=== PATIENT | female | born 1970 | race Asian ===

== ENCOUNTER 2017-04-11 12:42 | Emergency (ER) | payer OTHER ==
[~2017-04-11] VITALS: Ht 170.2 cm; Wt 102.1 kg
[2017-04-11 13:30] LABS: PLATELET COUNT 632 K/uL (152-353)
== END 2017-04-11 14:35 | disposition home or self-care (01) ==
LOC: ED 12:42
DX: M25.532 Pain in left wrist (principal); Z98.890 Other specified postprocedural states
CPT/HCPCS: 36415; 85027; 99283

== ENCOUNTER 2017-04-29 18:35 | Emergency (ER) | payer OTHER ==
[~2017-04-29] VITALS: Ht 170.2 cm; Wt 127.0 kg
== END 2017-04-29 21:15 | disposition home or self-care (01) ==
LOC: ED 18:35
DX: S00.03XA Contusion of scalp, initial encounter (principal); S30.0XXA Contusion of lower back and pelvis, initial encounter; W13.8XXA Fall from, out of or through other building or structure, initial encounter; Y92.098 Other place in other non-institutional residence as the place of occurrence of the external cause
CPT/HCPCS: 96372; 99283; J1885

== ENCOUNTER 2017-05-02 14:50 | Emergency (ER) | payer OTHER ==
[~2017-05-02] VITALS: Ht 170.2 cm; Wt 90.7 kg
[2017-05-02 15:54] LABS: PLATELET COUNT 443 K/uL (152-353)
== END 2017-05-02 16:25 | disposition home or self-care (01) ==
LOC: ED 14:50
DX: M25.532 Pain in left wrist (principal); G56.02 Carpal tunnel syndrome, left upper limb
CPT/HCPCS: 36415; 85027; 96372; 99283; J1885

== ENCOUNTER 2017-05-23 10:44 | Emergency (ER) | payer OTHER ==
[~2017-05-23] VITALS: Ht 170.2 cm; Wt 104.3 kg
[2017-05-23 11:25] LABS: PLATELET COUNT 276 K/uL (152-353)
[2017-05-23 11:33] LABS: POTASSIUM 3.7 mmol/L (3.6-5.2); SODIUM 141 mmol/L (136-145)
[2017-05-23 14:06] VITALS: BP 157/98; TEMP 98
== END 2017-05-23 14:06 | disposition home or self-care (01) ==
LOC: ED 10:44
DX: R51 Headache (principal); I10 Essential (primary) hypertension
CPT/HCPCS: 80053; 85027; 96374; 99284; J3490